=== PATIENT | female | born 1950 | race Caucasian/White ===

== ENCOUNTER 2016-09-08 11:20 | Day surgery (SDC) | payer BC ==
[~2016-09-08 11:20] MED LIST: Acetaminophen TAB* 325 MG PO PRN
[2016-09-08] MEDS ORDERED: Midazolam* 1 MG/ML 5 ML VIAL (5 MG) ONE (11:30)
[2016-09-08 14:15] VITALS: BP 148/80
[2016-09-08] MEDS ORDERED: Cyclopentolate 1% OPTH.SOL* 2 ML BTL ONE (14:29)
[2016-09-08] MEDS ORDERED: acetaZOLAMIDE TAB* 250 MG ONE (14:29)
[2016-09-08] MEDS ORDERED: Flurbiprofen 0.03% OPTH.SOL* 2.5 ML BTL ONE (14:29)
[2016-09-08] MEDS ORDERED: Tetracaine 0.5% OPTH.SOL 4 ML* 1 DROP BTL ONE (14:30)
[2016-09-08] MEDS ORDERED: Tropicamide 1% OPTH.SOL* BTL ONE (14:30)
[2016-09-08] MEDS ORDERED: Povidone Iodine 5% OPTH* 30 ML BTL ONE (14:30)
[2016-09-08] MEDS ORDERED: Lidocaine 1% MPF* 2 ML VIAL ONE (14:30)
[2016-09-08] MEDS ORDERED: Neomycin/Polymy/Dex OPHTH.OIN* 3.5 GM ONE (14:30)
[2016-09-08] MEDS ORDERED: Phenylephrine 2.5% OPTH.SOL* 2 ML BTL ONE (14:30)
--- NOTE | 2016-09-09 14:33 | OP ---
DATE OF OPERATION: 09/08/16 - [facility] DATE OF : 54 SURGEON: Alejandro Wilkinson MD ANESTHESIOLOGIST: Gem Palma MD ANESTHESIA: Monitored anesthesia care. 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 POST-OP DIAGNOSIS: Cataract, right eye, with corneal guttata. OPERATIVE PROCEDURE: Cataract surgery to the right eye. IMPLANTS: SN60WF 20.0 diopter lens to the right eye. COMPLICATIONS: None. DESCRIPTION OF PROCEDURE: The patient was given phenylephrine 2.5% and cyclopentolate 1% eye drops to the operative eye in the preoperative area. The patient was brought to the operating room where a time-out was taken to identify the correct patient, site, and side of surgery. The patient's right eye was prepped and draped in the usual sterile fashion with 5% Betadine. A second time- out was taken to identify the correct patient, site, and side of surgery, and correct lens selection. A lid speculum was placed to the right eye. Under the operating microscope, significant corneal guttata were visualized. A 1-mm paracentesis blade was used to make a clear corneal incision in the superotemporal position. Preservative-free 1% lidocaine was injected in the anterior chamber. DisCoVisc was then injected in the anterior chamber. A 2.75-mm keratome blade was used to make a triplanar incision at the inferotemporal position. A cystotome initiated the capsulorrhexis which was completed with Utrata forceps in a continuous and curvilinear manner. Hydrodissection of the lens was performed with BSS on a cannula. The lens could be spun in the capsular bag. The phacoemulsification handpiece was used with a iykbox-cyk-eggtzjx technique to remove the nucleus in its entirety with 15.02 CDE. During phacoemulsification handpiece, care was taken to direct the phacoemulsification power posteriorly and at or below the iris plane due to the patient's observed corneal guttata. The I/A handpiece then removed the residual cortical lens material. DisCoVisc was injected to inflate the capsular bag. The planned SN60WF 20.0 diopter lens was injected in the capsular bag. The residual DisCoVisc was removed from the eye with the I/A handpiece. The corneal incisions were hydrated and no leaks occurred at physiologic pressure around 20 mmHg per palpation. The lid speculum was removed and drapes removed. Maxitrol ointment was placed to the surface of the operative eye. An adhesive patch and shield was placed on the operative eye. The patient was taken to the postoperative area in stable condition. [id number]/[facility] #: [id number] MTDD
== END 2016-09-08 14:15 | disposition home or self-care (01) ==
LOC: OREAST 11:20
PROVIDERS: ATTEND Student in an Organized Health Care Education/Training Program
DX: H25.11 Age-related nuclear cataract, right eye (principal); H18.891 Other specified disorders of cornea, right eye; E11.9 Type 2 diabetes mellitus without complications; Z79.84 Long term (current) use of oral hypoglycemic drugs; I10 Essential (primary) hypertension; F17.210 Nicotine dependence, cigarettes, uncomplicated
CPT/HCPCS: A9270-GY; J2250; V2632

== ENCOUNTER 2016-09-15 11:39 | Day surgery (SDC) | payer BC ==
[~2016-09-15 11:39] MED LIST changes: +Buffered Lidocaine 0.9% SYRIN* 5 ML/SYR SYRINGE INTRADERM ONE
[2016-09-15] MEDS ORDERED: Phenylephrine 2.5% OPTH.SOL* 2 ML BTL ONE (12:35)
[2016-09-15] MEDS ORDERED: Tetracaine 0.5% OPTH.SOL 4 ML* 1 DROP BTL ONE (12:35)
[2016-09-15] MEDS ORDERED: Lidocaine 1% MPF* 2 ML VIAL ONE (12:35)
[2016-09-15] MEDS ORDERED: Flurbiprofen 0.03% OPTH.SOL* 2.5 ML BTL ONE (12:35)
[2016-09-15] MEDS ORDERED: Buffered Lidocaine 0.9% SYRIN* 5 ML/SYR SYRINGE ONE (12:35)
[2016-09-15] MEDS ORDERED: Tropicamide 1% OPTH.SOL* BTL ONE (12:35)
[2016-09-15] MEDS ORDERED: Cyclopentolate 1% OPTH.SOL* 2 ML BTL ONE (12:35)
[2016-09-15] MEDS ORDERED: Neomycin/Polymy/Dex OPHTH.OIN* 3.5 GM ONE (12:35)
[2016-09-15] MEDS ORDERED: acetaZOLAMIDE TAB* 250 MG ONE (12:35)
[2016-09-15] MEDS ORDERED: Povidone Iodine 5% OPTH* 30 ML BTL ONE (12:35)
[2016-09-15] MEDS ORDERED: Midazolam* 1 MG/ML 2 ML VIAL (2 MG) ONE (13:24)
[2016-09-15 14:00] VITALS: BP 143/76
--- NOTE | 2016-09-15 23:51 | OP ---
DATE OF OPERATION: 09/15/16 - [facility] DATE OF : 54 SURGEON: Alejandro Wilkinson MD ANESTHESIOLOGIST: Yoseph Roldan MD ANESTHESIA: Monitored anesthesia care. PRE-OP DIAGNOSIS: Cataract, left eye. POST-OP DIAGNOSIS: Cataract, left eye. OPERATIVE PROCEDURE: Cataract surgery, left eye. IMPLANTS: SN60WF 20.0 diopter lens to the left eye. COMPLICATIONS: None. DESCRIPTION OF PROCEDURE: The patient was given phenylephrine 2.5% and cyclopentolate 1% eye drops to the operative eye in the preoperative area. The patient was brought to the operating room where a time-out was taken to identify the correct patient, site and side of surgery. The patient's left eye was prepped and draped in the usual sterile fashion with 5% Betadine. A second time-out was taken to verify the correct patient, site, and side of surgery, and correct lens selection. A lid speculum was placed to the left eye. A 1-mm paracentesis blade was used to make a clear corneal incision in the inferotemporal position. Preservative-free 1% lidocaine was injected into the anterior chamber. DisCoVisc was then injected into the anterior chamber. A 2.75-mm keratome blade was used to make a triplanar incision at the superotemporal position. A cystotome initiated the capsulorrhexis, which was completed with Utrata forceps in a continuous and curvilinear manner. Hydrodissection of the lens was performed with BSS on a cannula. The lens could be spun in the capsular bag. The phacoemulsification handpiece was used with a divide- and-conquer technique to remove the nucleus in its entirety with 7.51 CDE. The I/A handpiece then removed the residual cortical lens material. DisCoVisc was injected to inflate the capsular bag. The planned SN60WF 20.0 diopter lens was injected in the capsular bag. The residual DisCoVisc was removed from the eye with the I/A handpiece. The corneal incisions were hydrated and no leaks occurred at physiologic pressure around 20 mmHg per palpation. The lid speculum was removed and drapes removed. Maxitrol ointment was placed to the surface of the operative eye. An adhesive patch and shield was placed on the operative eye. The patient was taken to the postoperative area in stable condition. [id number]/[facility] #: [id number] ATUL
== END 2016-09-15 14:10 | disposition home or self-care (01) ==
LOC: OREAST 11:39
PROVIDERS: ATTEND Student in an Organized Health Care Education/Training Program
DX: H25.12 Age-related nuclear cataract, left eye (principal); E11.9 Type 2 diabetes mellitus without complications; I10 Essential (primary) hypertension; F17.210 Nicotine dependence, cigarettes, uncomplicated; Z79.84 Long term (current) use of oral hypoglycemic drugs
CPT/HCPCS: A9270-GY; J2250; V2632